=== PATIENT | female | born 1960 | race Caucasian/White ===

== ENCOUNTER 2022-01-06 22:16 | Inpatient (IN) | payer MEDICAID ==
[~2022-01-06] VITALS: Ht 33 cm; Wt 77.1 kg
[2022-01-06 22:34] VITALS: BP_SYST 112
--- NOTE | 2022-01-06 22:40 | NUR ---
Patient triaged and placed in waiting room. VSS and patient appears in no acute distress at this time. Accompanied by DAUGHTER, awaiting available bed, and MD notified of need for MSE.
--- NOTE | 2022-01-06 22:45 | NUR ---
DR. MOORE IN TRIAGE FOR MSE
[2022-01-06] MEDS ORDERED: ONDANSETRON HCL 4 MG/2 ML VIAL IVP ONE ×2 (23:15)
[2022-01-06] MEDS ORDERED: MORPHINE 2 MG/ML INJ. SYRINGE IVP ONE ×2 (23:15)
[2022-01-06] MEDS ORDERED: NACL 0.9% 1,000 ML IV ONE ×2 (23:15)
--- NOTE | 2022-01-06 23:41 | NUR ---
Patient to ER bed 4 to gown for evaluation. Side rails up.
[2022-01-06 23:58] LABS: HEMOGLOBIN 15.7 g/dL (12.0-16.0)
[2022-01-07 00:05] LABS: BASOPHILS % (AUTO) 0.2 % (0.0-2.0); HEMATOCRIT 46.8 % (36-48); LYMPHOCYTES # (AUTO) 0.9 K/uL (1.0-5.5); LYMPHOCYTES % (AUTO) 7.7 % (20.5-51.5); MEAN CORPUSCULAR HEMOGLOBIN 29 pg (27-31); MEAN CORPUSCULAR HGB CONC 34 % (32-36); MEAN CORPUSCULAR VOLUME 87 fL (79.0-98.0); MONOCYTES # (AUTO) 0.7 K/uL (0.0-1.0); NEUTROPHILS # (AUTO) 9.9 K/uL (1.8-7.7); NEUTROPHILS % (AUTO) 86.1 % (40.0-70.0); PLATELET COUNT (AUTO) 193 K/uL (130-430); RED BLOOD CELL COUNT(AUTO) 5.38 MIL/uL (4.2-6.2); RED CELL DISTRIBUTION WIDTH 13.2 % (9.0-15.0); WHITE BLOOD COUNT (AUTO) 11.5 K/uL (4.8-10.8)
[2022-01-07 00:16] LABS: CALCIUM 8.2 mg/dL (8.4-11.0); CREATININE 1.02 mg/dL (0.55-1.30); POTASSIUM 3.6 mmol/L (3.5-5.1)
[2022-01-07 00:23] LABS: ALBUMIN 3.6 g/dL (3.4-4.8); TOTAL BILIRUBIN 0.5 mg/dL (0.0-1.0)
[2022-01-07] MEDS ORDERED: PANTOPRAZOLE SODIUM 40 MG/VIAL (PROTONIX) IVP ONE (02:45)
--- NOTE | 2022-01-07 02:50 | NUR ---
Admit bed requested Patient will be admitted to care of . Admitted to [facility] unit. Diagnosis [facility] Inpatient YES Observation NO Orientation concerns or request close to nursing station NO Covid Status PENDING On vent or bipap NO Isolation requirements NO Needs a sitter NO From Home YES Requires Dialysis NO Med Rec Completed PENDING
[2022-01-07] MEDS ORDERED: MORPHINE 2 MG/ML INJ. SYRINGE IVP PRN (03:00)
[2022-01-07] MEDS ORDERED: ONDANSETRON HCL 4 MG/2 ML VIAL IVP PRN (03:00)
[2022-01-07] MEDS: NACL 0.9% 1,000 ML IV SCH ×2 (03:00→23:28)
--- NOTE | 2022-01-07 04:06 | NUR ---
0317. Swabbed patient for Covid and sent sample to the lab.
--- NOTE | 2022-01-07 05:14 | NUR ---
Pt resting comfortably in bed AOX4 Verbally responsive Able to make needs known VSS NAD at this time
[2022-01-07 05:36] LABS: BILIRUBIN,URINE NEGATIVE (NEGATIVE); BLOOD, URINE NEGATIVE (NEGATIVE); CLARITY/URINE CLEAR (CLEAR); COLOR,URINE YELLOW (YELLOW); GLUCOSE,URINE NEGATIVE (NEGATIVE); KETONES,URINE NEGATIVE (NEGATIVE); LEUKOCYTE ESTERASE ,URINE NEGATIVE (NEGATIVE); NITRITE, URINE NEGATIVE (NEGATIVE); PROTEIN URINE NEGATIVE (NEGATIVE); UROBILINOGEN,URINE 0.2 (0.2-1.0)
--- NOTE | 2022-01-07 05:43 | NUR ---
Pt admitted to tele 120A AOX4 Verbally responsive Able to make needs known VSS NAD at this time Family and RN at bedside
--- NOTE | 2022-01-07 05:59 | NUR ---
Report received from ER transporter. Pt has SL but no IV (as stated in report). IV of NS at 70ml/hr started. DTR at bedside. Pt A+O*4. Pt instructed on Rest Room, Nurse Call Light, TV controls and keeping bed in low position to prevent falls. Pt and DTR understand instructions.
[2022-01-07 06:31] LABS: BASOPHILS % (AUTO) 0.4 % (0.0-2.0); HEMOGLOBIN 13.8 g/dL (12.0-16.0); LYMPHOCYTES % (AUTO) 16.5 % (20.5-51.5); MEAN CORPUSCULAR HEMOGLOBIN 29 pg (27-31); MEAN CORPUSCULAR HGB CONC 34 % (32-36); MEAN CORPUSCULAR VOLUME 87 fL (79.0-98.0); MONOCYTES # (AUTO) 0.4 K/uL (0.0-1.0); MONOCYTES % (AUTO) 6.5 % (1.7-9.3); NEUTROPHILS # (AUTO) 4.8 K/uL (1.8-7.7); NEUTROPHILS % (AUTO) 76.6 % (40.0-70.0); PLATELET COUNT (AUTO) 158 K/uL (130-430); RED BLOOD CELL COUNT(AUTO) 4.74 MIL/uL (4.2-6.2); RED CELL DISTRIBUTION WIDTH 13.2 % (9.0-15.0); WHITE BLOOD COUNT (AUTO) 6.2 K/uL (4.8-10.8)
--- NOTE | 2022-01-07 07:31 | NUR ---
CONSULTATION PAGED REASON FOR CONSULTATION:[facility] WAS CONSULT CALLED?Y PERSON WHO WAS NOTIFIED:TERE CONSULTING PHYSICIAN:BRYCE ALEGRIA COM WRITER SPECIALTY:-=SURGEON COM WRITER PHONE NUMBER:[phone] REQUESTING PHYSICIAN:ANGELO MORE MURUGAN
--- NOTE | 2022-01-07 07:38 | NUR ---
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 DIAMOND CONSULTING PHYSICIAN:DR.MULLANGI Kwon REFUGE WORKER SPECIALTY:SURGEON- REFUGE WORKER PHONE NUMBER:[phone] REQUESTING PHYSICIAN:EMILEE STEPHENS
[2022-01-07 07:44] LABS: CREATININE 0.56 mg/dL (0.55-1.30); POTASSIUM 3.9 mmol/L (3.5-5.1)
[2022-01-07 08:00] VITALS: BP_SYST 97
[2022-01-07] MEDS ORDERED: GASTROGRAFIN 120 ML ONE (10:33)
[2022-01-07 16:00] VITALS: BP_SYST 118
[2022-01-07 20:05] VITALS: BP_SYST 108
--- NOTE | 2022-01-07 20:05 | NUR ---
Opening notes Pt AAOx4, VSS, afebrile. No s/s distress noted. IVF infusing at ordered rate L. AC 20G clear and patent. Pt states pain is 3/10 tolerable and states eating ok. Call light within reach. Daughter Fariba at bedside. To monitor.
--- NOTE | 2022-01-07 21:19 | NUR ---
Pain Pt c/o 03/02 abd pain. VSS, medicated with Morphine 2mg slow IVP as needed. Call light within reach. Pt's daughter at bedside. to monitor.
[2022-01-08 00:17] VITALS: BP_SYST 91
--- NOTE | 2022-01-08 01:21 | NUR ---
Rounds Pt asleep, respirations even and unlabored. IVF infusing at ordered rate. Bed low, locked, siderails up x2. Call light within reach. To monitor.
[2022-01-08 04:00] VITALS: BP_SYST 104
--- NOTE | 2022-01-08 06:00 | NUR ---
Closing notes Pt AAOx4, no s/s distress noted. IVF infusing at ordered rate L. AC 20G clear and patent. Pt ambulated to bathroom and voided, steady gait. Call light within reach. Safety maintained. To endorse to AM nurse.
[2022-01-08 06:51] LABS: BASOPHILS % (AUTO) 0.4 % (0.0-2.0); HEMATOCRIT 37.1 % (36-48); HEMOGLOBIN 12.7 g/dL (12.0-16.0); LYMPHOCYTES # (AUTO) 1.6 K/uL (1.0-5.5); LYMPHOCYTES % (AUTO) 32.1 % (20.5-51.5); MEAN CORPUSCULAR HEMOGLOBIN 30 pg (27-31); MEAN CORPUSCULAR HGB CONC 34 % (32-36); MEAN CORPUSCULAR VOLUME 87 fL (79.0-98.0); MONOCYTES # (AUTO) 0.4 K/uL (0.0-1.0); MONOCYTES % (AUTO) 7.2 % (1.7-9.3); NEUTROPHILS % (AUTO) 60.3 % (40.0-70.0); PLATELET COUNT (AUTO) 159 K/uL (130-430); RED BLOOD CELL COUNT(AUTO) 4.27 MIL/uL (4.2-6.2); RED CELL DISTRIBUTION WIDTH 12.9 % (9.0-15.0); WHITE BLOOD COUNT (AUTO) 4.9 K/uL (4.8-10.8)
[2022-01-08 07:14] LABS: CALCIUM 7.3 mg/dL (8.4-11.0); CREATININE 0.59 mg/dL (0.55-1.30); POTASSIUM 3.7 mmol/L (3.5-5.1)
[2022-01-08 08:00] VITALS: BP_SYST 115
[2022-01-08] MEDS ORDERED: OMEP20CA15 PO (08:25)
[2022-01-08] MEDS ORDERED: PANTOPRAZOLE SODIUM 40 MG/VIAL (PROTONIX) IVP ONE (08:30)
--- NOTE | 2022-01-08 10:15 | NUR ---
A/Ox4,swazi speaking only,vss,ambulatory to bathroom by self.no c/o pain or discomfort d/c home as per dr sung.d/c IV.d/c instruction given and explained to pt and her daughter som at bedside.leaving via w/c.accompanied by her daughter.
== END 2022-01-08 10:15 | disposition home or self-care (01) | DRG 241 ==
LOC: SED 22:16 → SMU 01-07 02:46
PROVIDERS: ADMIT General Practice; ATTEND General Practice
DX: K29.70 Gastritis, unspecified, without bleeding (principal); E83.51 Hypocalcemia; Z20.822 Contact with and (suspected) exposure to COVID-19; D72.829 Elevated white blood cell count, unspecified; E66.9 Obesity, unspecified; Z87.11 Personal history of peptic ulcer disease; Z68.45 Body mass index [BMI] 70 or greater, adult
CPT/HCPCS: 36415; 74250-TC; 76376; 76700-TC; 80048; 80053; 81003; 83036; 83690; 83735; 85025; 96361; 96374; 96375; 99285; C9113; J2270; J2405; J7030; Q9963